=== PATIENT | female | born 1945 | race Caucasian/White ===

== ENCOUNTER 2016-08-09 09:46 | Emergency (ER) | payer OTHER, MEDICARE ==
[2016-08-09 10:23] VITALS: BP 128/80; PULSE 70; RESP 14; TEMP 97.9; O2SAT 98
--- NOTE | 2016-08-09 10:59 | UCPHY ---
[id number] Chief complaint. Right ear pain HPI. 71-year-old female with problems of right ear otitis and sinusitis and was on antibiotics in July. She has had right ear fullness and blockage for 1 week and some sinus pressure. No fever, Cough, chest pain. Otherwise no sore throat ROS Constitutional. no fever/chills, no weakness Eyes. no problems with vision ENT. Right ear pain Cardiovascular. no chest pain Respiratory. no shortness of breath, no cough Abdominal. no abdominal pain, no nausea/vomiting, no diarrhea . no problems urinating MS. no calf pain/swelling, no neck/back pain, no joint pain Skin. no rash Lymph. no swollen glands Neuro. no headache, no dizziness, no difficulty walking or with speech Past Medical/Surgical History: Sinus problems Social History: Single, nonsmoker, no alcohol Smoking Status: Never smoked Physical Exam: General Appearance: Alert well-developed female mild distress vital signs are stable Eyes: Pupils equal and round no pallor or injection. ENT, right ear canal is blocked with cerumen. Left tympanic membrane is normal. Pharynx is normal Respiratory: There are no retractions, lungs are clear to auscultation. Cardiovascular: Regular rate and rhythm. Gastrointestinal: Abdomen is soft and nontender, no masses, bowel sounds normal. Neurological: Awake and alert, sensory and motor exams grossly normal. Skin: Warm and dry, no rashes. Musculoskeletal: Neck is supple nontender. Extremities symmetrical, full range of motion. Psychiatric: Patient is oriented X 3, there is no agitation. Constitutional: Initial Vital Signs Temperature (C) 36.6 C 08/09/16 10:05 Heart Rate 70 08/09/16 10:05 Respiratory Rate 14 08/09/16 10:05 Blood Pressure 128/80 H 08/09/16 10:05 O2 Sat (%) 98 08/09/16 10:05 O2 Delivery Mode Room Air Allergies/Adverse Reactions: No Known Allergies Allergy (Verified 08/09/16 10:05) Home Medications: Medication Instructions Recorded Amoxicillin/Clavulanate Pot 875 mg PO BID #14 tab 08/09/16 [Augmentin 875 MG TAB (*)] Dicyclomine 08/09/16 Gabapentin 08/09/16 Meloxicam 08/09/16 Metoprolol Succinate 08/09/16 Pravastatin Sodium 08/09/16 Medical Decision Making ED Course/Re-evaluation: Right ear irrigation Inspection after the irrigation shows the tympanic membrane to be erythematous. Patient and I discussed treatment plan including criteria for return and importance of follow-up and further evaluation. She expresses understanding and agreement Differential Diagnosis: I considered otitis media, ex turn, mastoiditis Departure - Departure Disposition: Home, Routine, Self-Care Clinical Impression: Otitis media Qualifiers: Otitis media type: unspecified Laterality: right Chronicity: acute Condition: Good Instructions: Otitis Media (ED) Additional Instructions: Tylenol and ibuprofen for discomfort. May continue to use [id number] medications. Augmentin as antibiotic. Return for worsening symptoms. Keep follow-up appointment on Wednesday Referrals: Ti Daley MD [Medical Doctor] - 2-3 days without fail Prescriptions: Amoxicillin/Clavulanate Pot [Augmentin 875 MG TAB (*)] 875 mg PO BID #14 tab - PQRS PQRS Measurement: 134: Depression screening and followup, PRIME MD-PHQ2 (12 years and older) Over the last 2 weeks, how often have you been bothered by any of the following problems? 1. Feeling down, depressed, or hopeless? 2. Little interest or pleasure in doing things? Patient answered no to both 1 and 2 Patient answered yes to at least 1, referred to PCP for further evaluation. Not done because altered mental status patient refused critically ill. 130: Documentation of medications. Reviewed all patient medications, doses, route and frequency. 226: Do you smoke? No. 47: 65 and older: Advanced care planning. Patient has advanced directive.
[2016-08-09] MEDS ORDERED: CARBAMIDE PEROXIDE 15 ML BOTTLE ONE (11:07)
== END 2016-08-09 11:53 | disposition home or self-care (01) ==
LOC: CED 09:46
DX: H66.91 Otitis media, unspecified, right ear (principal)
CPT/HCPCS: G0463-PO

== ENCOUNTER 2017-03-13 11:33 | Emergency (ER) | payer OTHER, MEDICARE ==
[2017-03-13 11:45] VITALS: PULSE 68
--- NOTE | 2017-03-13 13:11 | EDPHY ---
H & P Smoking Status: Never smoked Time Seen by Provider: 03/13/17 12:11 HPI/ROS: CHIEF COMPLAINT: Hit head, facial numbness HISTORY OF PRESENT ILLNESS: 71-year-old female presents to the emergency department with right-sided head pain. The patient was at home on Wednesday, 5 days ago, and she was a putting heavy Esmeralda on a steven in her backyard and the steven came up and hit her in the right side of her head. She did not lose consciousness. She complains of right-sided headache. She states this morning she developed some numbness around her lips as well as the right side of her face. She is still having some mild pain right side of her head. She denies new neck pain. She has a history of chronic arthritic neck pain. She denies numbness or tingling in her fingers or toes. Feelings of weakness in her upper lower extremities. Denies abdominal pain. She was feeling mildly nauseous this morning. No visual changes. No hearing loss. REVIEW OF SYSTEMS: Constitutional: No fever, no chills. Eyes: No double or blurry vision. ENT: No sore throat. Respiratory: No cough, no shortness of breath. Cardiac: No chest pain. Gastrointestinal: No abdominal pain, vomiting or diarrhea. Genitourinary: No dysuria. Musculoskeletal: No neck or back pain. Skin: No rashes. Neurological: Right sided headache. (Neva Noble) Past Medical/Surgical History: AV malformation frontal lobe since 1997 (Neva Noble) Social History: and lives in [place] (Neva Noble) Physical Exam: General Appearance: Alert, no distress. Mentating normally and answering questions appropriately. Tender to palpate over the right temporal lobe. No palpable crepitus or other bony abnormality. No abrasion or puncture wound. Eyes: Pupils equal and round. Extraocular motions are all intact. ENT: Mouth: Mucous membranes moist. Unable to see tympanic membranes bilaterally, obscured by cerumen. Respiratory: No wheezing, rhonchi, or rales, lungs are clear to auscultation. Cardiovascular: Regular rate and rhythm. Gastrointestinal: Abdomen is soft and nontender, no masses, no rebound or guarding, bowel sounds normal. Neurological: Alert and oriented x 3, cranial nerves II through XII grossly intact Skin: Warm and dry, no rashes. Musculoskeletal: Nontender to palpate along the cervical, thoracic or lumbar spine. Neck is supple. Extremities: Full range of motion and no peripheral edema. Psychiatric: Patient is oriented X 3, there is no agitation. (Neva Noble) Constitutional: Initial Vital Signs Temperature (C) 36.8 C 03/13/17 11:41 Heart Rate 68 03/13/17 11:41 Respiratory Rate 16 03/13/17 11:41 Blood Pressure 139/91 H 03/13/17 11:41 O2 Sat (%) 99 03/13/17 11:41 O2 Delivery Mode Room Air Allergies/Adverse Reactions: No Known Allergies Allergy (Verified 08/09/16 10:05) Home Medications: Medication Instructions Recorded Lipitor 03/13/17 Medical Decision Making - Diagnostics Imaging: Discussed imaging studies w/ orthopedically impaired teacher Radiologist ED Course/Re-evaluation: 71-year-old female presents with head injury and facial numbness. I recommended CT imaging of the head to exclude possible skull fracture and or intracranial bleeding. The pros and the cons were discussed with the patient and she verbalized understanding and agreed. CT imaging of the brain was normal. Case was discussed with Dr. Servando Rodriguez, secondary supervising physician, who agrees with discharge and close follow-up with her neurologist, Dr. Dubois. Patient was comfortable being discharged home. (Neva Noble) I did not see this patient while she was in the emergency department. However her care was discussed with the PA while the patient was in the department. I agree with treatment plan and management (Servando Rodriguez) Differential Diagnosis: Head injury including but not limited to concussion, skull fracture, intraparenchymal contusion, subarachnoid, subdural and epidural hematoma. (Neva Noble) Departure - Departure Disposition: Home, Routine, Self-Care Clinical Impression: Head injury due to trauma Condition: Good Instructions: Head Injury (ED) Additional Instructions: Return to the emergency department if you developed worsening headache, vomiting , altered mental status, or if you feel worse in any way. Follow up with your neurologist this week to recheck. Avoid any activity that might put you at risk for another head injury for at least 1 week. Referrals: Shan Dubois MD [Medical Doctor] - As per Instructions
[2017-03-13 14:18] VITALS: BP 142/78; RESP 18; TEMP 98.1; O2SAT 96
== END 2017-03-13 14:18 | disposition home or self-care (01) ==
DX: S09.90XA Unspecified injury of head, initial encounter (principal); W22.8XXA Striking against or struck by other objects, initial encounter; Y92.009 Unspecified place in unspecified non-institutional (private) residence as the place of occurrence of the external cause

== ENCOUNTER → 2017-04-19 | Outpatient (CLI) | payer OTHER, MEDICARE | LOC: FIMAGING 09:54 | PROVIDERS: ATTEND Physician Assistant | DX: M99.71 Connective tissue and disc stenosis of intervertebral foramina of cervical region (principal); M12.88 Other specific arthropathies, not elsewhere classified, other specified site; M50.323 Other cervical disc degeneration at C6-C7 level; M50.33 Other cervical disc degeneration, cervicothoracic region ==

== ENCOUNTER → 2017-05-13 | Outpatient (CLI) | payer OTHER, MEDICARE | LOC: FIMAGING 11:23 | PROVIDERS: ATTEND Physical Medicine & Rehabilitation | DX: M51.36 Other intervertebral disc degeneration, lumbar region (principal); M47.892 Other spondylosis, cervical region ==

== ENCOUNTER → 2017-06-03 | Outpatient (CLI) | payer OTHER, MEDICARE | LOC: FIMAGING 09:40 | PROVIDERS: ATTEND Physician Assistant | DX: M76.01 Gluteal tendinitis, right hip (principal); M76.02 Gluteal tendinitis, left hip ==

== ENCOUNTER 2017-10-06 09:49 | Emergency (ER) | payer OTHER, MEDICARE ==
[2017-10-06] MEDS ORDERED: NS 500 ML IV ONE (10:02)
--- NOTE | 2017-10-06 10:06 | CPEKG ---
Heart Rate: 58 RR Interval: 1034 P-R Interval: 212 QRSD Interval: 90 QT Interval: 416 QTC Interval: 409 P [place]: 72 QRS [place]: -39 T Wave [place]: 41 EKG Severity - ABNORMAL ECG - EKG Impression: SINUS RHYTHM EKG Impression: PROBABLE LEFT ATRIAL ABNORMALITY EKG Impression: LEFT AXIS DEVIATION EKG Impression: LOW VOLTAGE IN FRONTAL LEADS EKG Impression: BORDERLINE R WAVE PROGRESSION, ANTERIOR LEADS Electronically Signed By: Joanne Small 06-Oct-2017 12:39:12
[2017-10-06 10:07] VITALS: RESP 16
--- NOTE | 2017-10-06 10:09 | EDPHY ---
H & P Time Seen by Provider: 10/06/17 09:54 HPI/ROS: HPI Lightheaded, facial numbness. 72-year-old female by private vehicle with friend. Patient reports she was gardening on Wednesday when she hit the right side of her head on a metal rail. There was no loss of consciousness. She reports that she had a goose egg to the right mid parietal area of her scalp. She reports it she did not have a significant headache. No neck pain. She reports that the Gu said got progressively better. She reports that she woke up this morning and felt lightheaded and had facial numbness which she describes as around her lips as well as some tingling in her right arm. Onset of symptoms 7:00 a.m.. She is concerned because she has a history of a left frontal AV malformation. She denies any other associated signs or symptoms. She is not on anticoagulants or antiplatelet medications. ROS: Constitutional: No fever, no chills. As above. Eyes: No discharge. No changes in vision. ENT: No sore throat. No nasal congestion or rhinorrhea. Respiratory: No cough. No shortness of breath. Cardiac: No chest pain, no palpitations. Gastrointestinal: No abdominal pain, no vomiting, no diarrhea. Genitourinary: No hematuria. No dysuria or increased frequency with urination. Musculoskeletal: No back pain. No neck pain. No myalgias or arthralgias. Skin: No rashes. Neurological: No headache. As above. Past medical history: Av malformation, left frontal lobe, diagnosed in 1997, no other significant past medical history. Social history: . Lives in [place]. No alcohol no smoking. Physical Exam: General Appearance: Alert, no distress. This patient is responding to questions appropriately and in full sentences. This patient appears well- hydrated and well-nourished. Head: Normocephalic atraumatic. Face: Facial bones are stable on palpation. Eyes: Pupils equal and round and reactive to light, no pallor or injection. No lid erythema or edema. No nystagmus. No photophobia. ENT, Mouth: Mucous membranes moist. Dentition is intact. No malocclusion of the jaw. No tongue lacerations or abrasions. Pharynx is clear. The bilateral nasal canals are clear. No septal hematoma. Respiratory: There are no retractions, lungs are clear to auscultation with good air movement bilaterally. Chest wall is stable to AP and lateral palpation. Cardiovascular: Regular rate and rhythm. No murmur. Gastrointestinal: Abdomen is soft and nontender, no masses, bowel sounds normal. Neurological: Motor sensory function is intact. Cranial nerves are normal. Cerebellar function intact. Gait is normal. Skin: Warm and dry, no rashes. No lacerations, abrasions or contusions. Musculoskeletal: Neck is supple and nontender. The trachea is midline. No midline cervical, thoracic, lumbar or sacral tenderness on palpation. No flank tenderness on palpation. Extremities are symmetrical, full range of motion. All joints in the bilateral upper and bilateral lower extremities range without pain or impingement. No tenderness on palpation of the long bones in the bilateral upper and bilateral lower extremities. Psychiatric: No agitation. No depression. Database: EKG: EKG time is 10:04 a.m.; EKG shows a narrow complex normal sinus rhythm with a ventricular rate of 58. Low voltage noted in the frontal leads, borderline R- wave progression in the anterior leads. The HI, QRS, QT intervals are within normal limits. There are no ST-T wave changes indicative of ischemic or injury pattern. No evidence of right heart strain. No evidence of WPW, Brugada syndrome, hypertrophic cardiomyopathy. Interpreted by me. Imaging: CT head without contrast: Stable left frontal lobe AVM. No significant findings. Results were discussed with staff radiologist Dr. Blair Fried. Procedures: Emergency department course: Vital signs reviewed and are unremarkable. IV placed. Patient was placed on a environmental monitoring specialist. She will be given 500 cc of IV normal saline. EKG obtained and reviewed by myself. She consents for CT imaging of her head given her history of trauma AV malformation. 11:00 a.m., patient re-evaluated. Results of her EKG, CT scan and blood work discussed with her. Her vital signs have remained normal. She has been asymptomatic since being in the emergency department. I discussed admission for observation overnight. She does not want to do this at this time. I also discussed getting an MRI of her brain which she declines. She understands the risks of declining admission as well as further testing. The patient competently engages in shared decision making. They demonstrate capacitance to make decisions. Her repeat neurologic Assessment is nonfocal. We got her up and she was ambulatory around the emergency department with a normal gait. She is requesting discharge. She lives near the emergency department and can easily return here if needed. She states she will go home and rest the remainder of the day. Follow-up was thoroughly reviewed with her. All of her questions were answered. She was discharged in good condition. Differential Diagnosis: The differential diagnosis on this patient includes but is not limited to head injury including skull fracture, subarachnoid hemorrhage, epidural hematoma, subdural hematoma, acute coronary syndrome, anemia, cardiac arrhythmia, TIA unlikely. This represents a partial list of diagnoses considered. These considerations are based on history, physical exam, past history, reassessment and diagnostic testing. Smoking Status: Never smoked Constitutional: Initial Vital Signs Temperature (C) 36.3 C 10/06/17 09:55 Heart Rate 79 10/06/17 09:55 Respiratory Rate 20 10/06/17 09:55 Blood Pressure 139/86 H 10/06/17 09:55 O2 Sat (%) 97 10/06/17 09:55 O2 Delivery Mode Room Air Allergies/Adverse Reactions: No Known Allergies Allergy (Verified 10/06/17 10:02) Home Medications: Medication Instructions Recorded Dicyclomine 10/06/17 Elastat Eye Drop 10/06/17 Gabapentin 10/06/17 Lorazepam 10/06/17 Meloxicam 10/06/17 Metoprolol Succinate 10/06/17 Pravastatin Sodium 10/06/17 Vsl#3 Cap (*) 10/06/17 Medical Decision Making - Diagnostics Imaging Results: Imaging Impressions Head CT 10/06/17 10:03 Impression: 1. No acute intracranial findings. 2. Diffuse cerebral atrophy with periventricular and subcortical low attenuation consistent with chronic microvascular ischemic gliosis. 3. Grossly stable left frontal cavernous angioma. Findings discussed with Joanne Small MD on 10/06/2017 at 10:36 a.m. - Data Points Laboratory Results: Laboratory Results 10/06/17 10:17 10/06/17 10:17 10/06/17 10/06/17 10:17 10:17 WBC 7.62 10^3/uL 10^3/uL (3.80-9.50) RBC 4.96 10^6/uL 10^6/uL (4.18-5.33) Hgb 15.6 g/dL g/dL (12.6-16.3) Hct 46.5 % % (38.0-47.0) MCV 93.8 fL fL (81.5-99.8) MCH 31.5 pg pg (27.9-34.1) MCHC 33.5 g/dL g/dL (32.4-36.7) RDW 13.0 % % (11.5-15.2) Plt Count 331 10^3/uL 10^3/uL (150-400) MPV 9.5 fL fL (8.7-11.7) Neut % (Auto) 62.8 % % (39.3-74.2) Lymph % (Auto) 28.0 % % (15.0-45.0) [place] % (Auto) 7.5 % % (4.5-13.0) Eos % (Auto) 1.0 % % (0.6-7.6) Baso % (Auto) 0.4 % % (0.3-1.7) Nucleat RBC Rel Count 0.0 % % (0.0-0.2) Absolute Neuts (auto) 4.79 10^3/uL 10^3/uL (1.70-6.50) Absolute Lymphs (auto) 2.13 10^3/uL 10^3/uL (1.00-3.00) Absolute Monos (auto) 0.57 10^3/uL 10^3/uL (0.30-0.80) Absolute Eos (auto) 0.08 10^3/uL 10^3/uL (0.03-0.40) Absolute Basos (auto) 0.03 10^3/uL 10^3/uL (0.02-0.10) Absolute Nucleated RBC 0.00 10^3/uL 10^3/uL (0-0.01) Immature Gran % 0.3 % % (0.0-1.1) Immature Gran # 0.02 10^3/uL 10^3/uL (0.00-0.10) Sodium 141 mEq/L mEq/L (135-145) Potassium 4.0 mEq/L mEq/L (3.5-5.2) Chloride 106 mEq/L mEq/L (97-110) Carbon Dioxide 25 mEq/l mEq/l (22-31) Anion Gap 10 mEq/L mEq/L (8-16) BUN 15 mg/dL mg/dL (7-23) Creatinine 0.7 mg/dL mg/dL (0.6-1.0) Estimated GFR > 60 Glucose 99 mg/dL mg/dL (70-100) Calcium 10.0 mg/dL mg/dL (8.5-10.4) Troponin I < 0.012 ng/mL ng/mL (0.000-0.034) Medications Given: Discontinued Medications Sodium Chloride (Ns) 500 mls @ 1,000 mls/hr IV EDNOW ONE PRN Reason: Protocol Stop: 10/06/17 10:31 Last Admin: 10/06/17 10:45 Dose: 500 mls Departure - Departure Disposition: Home, Routine, Self-Care Clinical Impression: Head injury, Lightheaded Condition: Good Instructions: Head Injury (ED), Lightheadedness (ED) Additional Instructions: Read and follow provided instructions. Follow-up with your primary care physician tomorrow for re-evaluation as discussed. Keep well hydrated. No strenuous activity. Return to the emergency department for worsening symptoms, lightheadedness, fainting, heart palpitations, chest pain, loss of sensation or weakness in your extremities or other serious concerns. Referrals: Anny Patterson [Primary Care Provider] - As per Instructions
[2017-10-06 10:23] LABS: PLATELET COUNT 331 10^3/uL (150-400)
[2017-10-06 11:38] VITALS: BP 122/84; PULSE 54; TEMP 97.9; O2SAT 97
== END 2017-10-06 11:48 | disposition home or self-care (01) ==
LOC: CED 09:49
DX: S09.90XA Unspecified injury of head, initial encounter (principal); R42 Dizziness and giddiness; W22.8XXA Striking against or struck by other objects, initial encounter; Y92.007 Garden or yard of unspecified non-institutional (private) residence as the place of occurrence of the external cause; Y99.8 Other external cause status; Y93.H2 Activity, gardening and landscaping
CPT/HCPCS: 70450-PO; 80048-PO; 84484-PO; 85025-PO

== ENCOUNTER → 2017-10-28 | Outpatient (CLI) | payer OTHER, MEDICARE | LOC: BHFA 14:00 | PROVIDERS: ATTEND Internal Medicine Cardiovascular Disease | DX: R00.2 Palpitations (principal) ==

== ENCOUNTER → 2017-11-08 | Outpatient (CLI) | payer OTHER, MEDICARE | LOC: BHFA 13:00 | PROVIDERS: ATTEND Internal Medicine Cardiovascular Disease | DX: R00.2 Palpitations (principal) | CPT/HCPCS: 78452; 93017; A9500 ==

== ENCOUNTER → 2018-08-15 | Outpatient (CLI) | payer OTHER, MEDICARE | LOC: FIMAGING 09:24 | PROVIDERS: ATTEND Psychiatry & Neurology Neurology | DX: M48.061 Spinal stenosis, lumbar region without neurogenic claudication (principal) ==

== ENCOUNTER 2018-09-27 09:08 | Emergency (ER) | payer OTHER, MEDICARE ==
[2018-09-27 09:20] VITALS: BP 127/76
--- NOTE | 2018-09-27 09:52 | EDPHY ---
H & P Time Seen by Provider: 09/27/18 09:13 HPI/ROS: This patient reports discomfort in the esophageal area after dry swelling to pills Wednesday morning, 2 days prior to arrival. She explains that she felt the pills got stuck in her pharynx and then drink a lot of water with ventral feeling of passage down into the substernal region. She however went to bed Wednesday night still without discomfort but on Wednesday felt improved with resolution of the symptoms and tolerated a normal diet until she awakened part way through last night with the feeling of discomfort in the same region- epigastrium radiating until low chest. She reports that she was apprehensive about this feeling in coughed a lot as well. She also wondered if she might have aspirated the pills but reports no episodes of vomiting. She reports that she recently -1 week ago developed gastric irritation on Celebrex for her arthritis in her neck and her back and was started on [id number] Nexium by her coffee weigher instructed to stop the Celebrex. She reports improvement in her gastritis symptoms since starting the Nexium. ROS: Constitutional: No fevers or chills HEENT: No complaints. Currently no sore throat Pulmonary: No wheezing, pleuritic pain or dyspnea currently. She reports coughing when she lies supine at times. Cardiovascular: No heart palpitations lightheadedness, diaphoresis or lower extremity swelling. GI: As per HPI. 10 point review of symptoms is performed and otherwise negative with exception of pertinent positives and negatives listed in HPI and ROS Smoking Status: Never smoked Physical Exam: General Appearance: Alert, no distress. Eyes: Pupils equal and round no pallor or injection. ENT, Mouth: Mucous membranes moist. Oropharynx is clear Respiratory: There are no retractions, lungs are clear to auscultation. Cardiovascular: Regular rate and rhythm. Gastrointestinal: Abdomen is soft and nontender, no masses, bowel sounds normal. Neurological: GCS 15 Skin: Warm and dry, no rashes. Musculoskeletal: Neck is supple nontender. Extremities are symmetrical, full range of motion. Psychiatric: Mood and affect are normal DIFFERENTIAL DIAGNOSIS: After history and physical exam differential diagnosis was considered for esophagitis, esophageal foreign body, GERD, gastritis Constitutional: Initial Vital Signs Temperature (C) 36.7 C 09/27/18 09:16 Heart Rate 92 09/27/18 09:16 Respiratory Rate 18 09/27/18 09:16 Blood Pressure 127/76 H 09/27/18 09:16 O2 Sat (%) 99 09/27/18 09:16 O2 Delivery Mode Room Air Allergies/Adverse Reactions: No Known Allergies Allergy (Verified 09/27/18 09:15) Home Medications: Medication Instructions Recorded Dicyclomine 10/06/17 Elastat Eye Drop 10/06/17 Lorazepam 10/06/17 Metoprolol Succinate 10/06/17 Pravastatin Sodium 10/06/17 Vsl#3 Cap (*) 10/06/17 Benzonatate [Tessalon Pearles (RX)] 100 - 200 mg PO TID PRN #20 cap 09/27/18 Lidocaine [Lidoderm] 1 each TP DAILY #15 adh..patch 09/27/18 Lizness 09/27/18 MDM/Departure - [facility] ED Course/Re-evaluation: Counseled patient regarding GERD and esophagitis. Given the patient tolerated a normal diet for 24 hr after the symptoms and not think she has a significant esophageal impaction. The pills she ingested are not associated with erosive esophagitis, but recommended close follow up with Gastroenterology if increasing her Nexium dose does not resolve her symptoms. Will plan to double her Nexium dose to 40 mg a day counseled regarding GERD diet and other procedures. Provided Lidoderm patches for her arthritic pain off the Celebrex. Also provided Tessalon Perles for any significant cough. Currently no evidence of pneumonia or other red flag findings. She appears well on exam with normal vital signs. she however understands need to return emergency department should she develop any significant worsening despite the treatment plan - Depart Disposition: Home, Routine, Self-Care Clinical Impression: Esophagitis, Arthritis pain GERD (gastroesophageal reflux disease) Qualifiers: Esophagitis presence: esophagitis presence not specified Qualified Code(s): K21.9 - Gastro-esophageal reflux disease without esophagitis Condition: Good Instructions: Gastroesophageal Reflux Disease (ED), Esophagitis (ED) Additional Instructions: Diagnosis: 1. Esophagitis 2. GERD 3. Arthritic pain Plan: Increase your Nexium to 40 mg daily for the next 7-10 days and then back down to 20 mg. Have a bland diet until you feel improved Consider placing 2 by 4s under the head of your bed to tip the head of the bed up slightly for less acid reflux. For cough, try Tessalon Perles For arthritic pain, try Lidoderm patches Call Dr. Ha, your apple sorter to arrange follow-up appointment for any ongoing symptoms despite the treatment plan Prescriptions: Benzonatate [Tessalon Pearles (RX)] 100 - 200 mg PO TID PRN #20 cap PRN Reason: cough Lidocaine [Lidoderm] 1 each TP DAILY #15 adh..patch Referrals: Anny Patterson [Primary Care Provider] - As per Instructions
== END 2018-09-27 10:04 | disposition home or self-care (01) ==
LOC: CED 09:08
DX: K21.9 Gastro-esophageal reflux disease without esophagitis (principal); M54.5 Low back pain
CPT/HCPCS: 99284-ER